=== PATIENT | female | born 1935 | race Caucasian/White ===

== ENCOUNTER 2022-04-10 14:23 | Emergency (ER) | payer MEDICARE, OTHER ==
[~2022-04-10] VITALS: Ht 157.5 cm; Wt 70.3 kg
--- NOTE | 2022-04-10 14:45 | NUR ---
BIBGRANDAUGHTER C/O COUGH AND CHEST TIGHTNESS SINCE SHE GOT SICK WITH COVID -19 IN FEBRUARY 2021, DIDN'T SEEK MEDICAL HELP BEC[facility],CAME BACK LAST WEEK. AMBULATORY, PLACED ON BED, AAOX4, WITH LESER CHEST TIGHTNESS VERBALIZED.
--- NOTE | 2022-04-10 14:55 | NUR ---
BLOOD DRAWN AND SENT TO LAB
--- NOTE | 2022-04-10 14:56 | NUR ---
SEEN AND EXAMINED BY DR ACEVEDO
--- NOTE | 2022-04-10 15:00 | NUR ---
SWAB FOR COVID19 SENT TO LAB
[2022-04-10 15:02] LABS: BASOPHILS # (AUTO) 0.1 K/uL (0.0-0.2); BASOPHILS % (AUTO) 1.1 % (0.0-2.0); EOSINOPHILS % (AUTO) 4.8 % (0.0-6.0); HEMATOCRIT 40 % (33-45); HEMOGLOBIN 13.5 g/dL (11.5-14.8); LYMPHOCYTES # (AUTO) 1.9 K/uL (0.8-4.8); MEAN CORPUSCULAR HGB CONC 34 g/dl (31.0-36.0); MEAN CORPUSCULAR VOLUME 90 fL (82-100); MONOCYTES # (AUTO) 0.8 K/uL (0.1-1.30); MONOCYTES % (AUTO) 8.3 % (2.0-12.0); NEUTROPHILS # (AUTO) 5.9 K/uL (1.8-8.9); NEUTROPHILS % (AUTO) 64.8 % (43.0-81.0); PLATELET COUNT (AUTO) 164 K/uL (150-450); RED BLOOD CELL COUNT(AUTO) 4.51 MIL/uL (4.0-5.2); WHITE BLOOD COUNT (AUTO) 9.1 K/uL (4.3-11.0)
[2022-04-10 15:19] LABS: CALCIUM, SERUM 8.8 mg/dL (8.5-10.1); CARBON DIOXIDE 31 mmol/L (21-32); CHLORIDE 103 mmol/L (98-107); CREATININE 1.1 mg/dL (0.6-1.3); GLUCOSE 187 mg/dL (74-106); POTASSIUM 3.7 mmol/L (3.5-5.1); SODIUM SERUM 140 mmol/L (136-145); UREA NITROGEN, BLOOD 25 mg/dL (7-18)
[2022-04-10 15:25] LABS: ALANINE AMINOTRANSFERASE 36 U/L (12-78); ALBUMIN 3.3 g/dL (3.4-5.0); ALKALINE PHOSPHATASE 88 U/L (46-116); ASPARTATE AMINOTRANSFERASE 25 U/L (15-37); BILIRUBIN,DIRECT 0.2 mg/dL (0.0-0.2); BILIRUBIN,TOTAL 0.7 mg/dL (0.2-1.0); TOTAL PROTEIN, SERUM 6.5 g/dL (6.4-8.2)
[2022-04-10] MEDS ORDERED: OLME1TAB16 PO (15:55)
[2022-04-10] MEDS ORDERED: ROSU10TA2 PO (15:55)
[2022-04-10] MEDS ORDERED: OMEP20CA15 PO (15:55)
[2022-04-10] MEDS ORDERED: MAGN400T26 PO (15:55)
[2022-04-10] MEDS ORDERED: ASPI-1169 PO (15:55)
[2022-04-10] MEDS ORDERED: ISOS30TA86 PO (15:55)
--- NOTE | 2022-04-10 16:19 | NUR ---
SWAB FOR INFLUENZA SENT TO LAB
[2022-04-10] MEDS ORDERED: GUAI-671 PO (17:38)
[2022-04-10 17:44] VITALS: BP 143/65
--- NOTE | 2022-04-10 17:44 | NUR ---
IV removed. Catheter intact and site benign. Pressure and 4x4 applied to site. No bleeding noted.Patient discharged to home in stable condition. Written and verbal after care instructions given. Patient verbalizes understanding of instruction.
== END 2022-04-10 17:45 | disposition home or self-care (01) ==
LOC: ER 14:28
DX: J20.9 Acute bronchitis, unspecified (principal); Z20.822 Contact with and (suspected) exposure to COVID-19; I10 Essential (primary) hypertension; R00.1 Bradycardia, unspecified; Z88.2 Allergy status to sulfonamides
CPT/HCPCS: 36415; 71045-TC; 80048-TC; 80076-TC; 84484-TC; 85025-TC; C9803